=== PATIENT | male | born 1940 | race Caucasian/White ===

== ENCOUNTER 2018-05-23 05:05 | Inpatient (IN) ==
[2018-05-23] MEDS ORDERED: LACTATED RINGERS 1,000 ML IV ONE (05:38)
[2018-05-23 06:16] LABS: Basophils # (Auto) 0 K/mcL (0.0-0.3); Basophils % (Auto) 0.6 % (0.0-2.0); Eosinophils # (Auto) 0.1 K/mcL (0.0-0.7); Eosinophils % (Auto) 1.7 % (0.0-7.0); Granulocytes % (Auto) 69.7 % (38.0-78.0); Lymphocytes # (Auto) 1.6 K/mcL (1.5-4.8); Lymphocytes % (Auto) 19.8 % (15.5-49.0); Mean Cell Volume 81.9 fL (80.0-100.0); Mean Corpuscular HGB Conc 31.7 g/dL (31.0-36.0); Monocytes # (Auto) 0.7 K/mcL (0.1-0.9); Monocytes % (Auto) 8.2 % (1.0-12.0); Platelet Count 551 K/mcL (140-440); RBC 4.03 M/mcL (4.50-5.90); Red Cell Distribution Width 20.6 % (11.5-14.5)
[2018-05-23 06:22] LABS: Appearance,Urine HAZY; Bacteria,Urine FEW /hpf (0); Bilirubin,Urine NEG (NEG); Color,Urine YELLOW; Glucose,Urine (UA) NEGATIVE (NEG); Leukocyte Esterase,Urine 500 /uL (NEG); Mucus,Urine MANY /hpf (0); Protein,Urine NEG (NEG); Specific Gravity,Urine 1.017 (1.000-1.035); Urine Blood 0.03 mg/dL (<0.03); Urine Hyaline Cast 1 /lpf (0-2); Urine RBC 27 /hpf (0-1); Urine Squamous Epithelial Cell 1 /hpf (0-4); Urine WBC 29 /hpf (0-4); Urobilinogen,Urine NEG (NEG)
--- NOTE | 2018-05-23 06:31 | XRay Report ---
INDICATION: Weakness TECHNIQUE: AP chest x-ray, portable semiupright COMPARISON: None FINDINGS: There is cardiomegaly. No pulmonary edema. Right basilar pulmonary parenchymal density may be pneumonia. Correlation follow-up radiograph recommended. PA and lateral chest x-ray be helpful when clinically appropriate IMPRESSION: 1. Cardiomegaly. No evidence for congestive heart failure 2. Right basilar pulmonary parenchymal density consistent with pneumonia. Follow-up recommended Interpreted and Authenticated by: Moises Marks 05/23/18
[2018-05-23 06:39] LABS: ALT/SGPT 55 U/l (0-40); Albumin 3.6 gm/dL (3.2-5.2); Albumin/Globulin Ratio 1.2 (1.0-2.3); Alkaline Phosphatase 116 U/L (39-117); Blood Urea Nitrogen 18 mg/dl (8-23)
--- NOTE | 2018-05-23 06:58 | Emergency Department Note ---
Weakness HPI - General Chief complaint: Weakness Stated complaint: weakness Time Seen by Provider: 05/23/18 05:59 Source: family, EMS Mode of arrival: EMS Limitations: no limitations - History of Present Illness HPI Narrative: This 78-year-old male was brought to the emergency room this morning after he was found to be lethargic sleepy and not taking his medications and hard to arouse. He had a similar presentation of this around May 08 when he had a pneumonia and was admitted at [facility]. At time of discharge he needed additional physical therapy and inpatient care but because of dietary requirements for his gluten/celiac he had to be transferred here where he was accepted at [facility]. Since discharge he has had a chronic Landon. He has been taking cefuroxime. He has had poor p.o. 24 hours. Family was concerned that maybe he was exposed to gluten yesterday causing this reaction. REVIEW OF SYSTEMS: Much of this history obtained per patient's who had some troubles remembering things. No fevers or chills or sweats recently since his discharge from [facility]. No chest pains or palpitations reported. Some cough. It appears a history of aspiration but none recently. Has a little diarrhea. No dysuria. Patient self caths at home. His Landon catheter was to come out in a couple of days. No rashes. No headaches or weakness but he does use a walker. He has a lot of imbalance issues. No anxiety or depression. Has had some insomnia. - Related Data Home Medications Medication Instructions Recorded Confirmed Furosemide [Lasix] 20 mg PO ONCE 05/23/18 05/23/18 Ipratropium/Albuterol [Duoneb] 3 ml NEB Q6HRT PRN 05/23/18 05/23/18 Lisinopril [Zestril] 5 mg PO DAILY 05/23/18 05/23/18 Magnesium Hydroxide [Milk of 30 ml PO PRN PRN 05/23/18 05/23/18 Magnesia] Omeprazole 20 mg PO ONCE 05/23/18 05/23/18 Potassium Chloride [K-Tab ER] 20 meq PO ONCE 05/23/18 05/23/18 Pramipexole [Mirapex] 0.25 mg PO HS 05/23/18 05/23/18 Sucralfate [Carafate] 1 gm PO Q6 05/23/18 05/23/18 Tamsulosin [Flomax] 0.4 mg PO HS 05/23/18 05/23/18 Topiramate [Topamax] 25 mg PO ONCE 05/23/18 05/23/18 Vit A/Vit C/Vit E/Zinc/Copper 1 cap PO BID 05/23/18 05/23/18 [Preservision Areds Softgel] guaiFENesin [Mucinex] 600 mg PO BID 05/23/18 05/23/18 Allergies Allergy/AdvReac Type Severity Reaction Status Date / Time doxycycline Allergy Verified 05/23/18 05:08 nabumetone [From Relafen] Allergy Verified 05/23/18 05:08 nitrofurantoin Allergy Verified 05/23/18 05:08 Sulfa (Sulfonamide Allergy Verified 05/23/18 05:08 Antibiotics) aspirin AdvReac Verified 05/23/18 05:08 codeine AdvReac Verified 05/23/18 05:08 hydrocodone AdvReac Verified 05/23/18 05:08 tramadol AdvReac Verified 05/23/18 05:08 Past Medical History - Past Medical History Medical history: Reports: cancer (Prostate), CHF (Noted at [facility] 04/2018, chest and elevated BNP.), hyperlipidemia, hypertension, other (Status post radiation. Radiation gastroenteritis. Cervical spinal stenosis. Parkinson's. Pneumonia. Neuromuscular dysfunction bladder. Celiac. Osteoporosis. Concussion (fall related). C difficile. Macular degeneration. UGI Bleed / gastritis 01/2016. Anemia (iron infusions and 09/2008). Dysphagia (2013, 2014; feeding tube 2016 after cervical spine surgery).) Psychiatric history: Denies: anxiety, depression Surgical history ED: Reports: cataract (Bilateral 04/2016), orthopedic, other ( cervical spine rods, fusion (08/2017). R rotator cuff 11/2012. Arthroscopic L knee 11/2002.), tonsillectomy (1946.), other (adhesiolysis 11/2016. TURP 2016. Varicose vein radio frequ and 09/2012.) - Social History smoking status: Former smoker (Quit 1980) Alcohol use: Reports: Occasionally (2-3 glasses of wine per week.) Drug use: Reports: none. Denies: marijuana Physical Exam Limitations: no limitations General appearance: obtunded, other (Not interactive.) Head: atraumatic, normocephalic ENT: mucous membranes dry, other (Breathing through mouth.) Neck: Present: trachea midline. Absent: lymphadenopathy, thyromegaly Respiratory: Present: normal lung sounds bilaterally. Absent: respiratory distress, wheezes, stridor, accessory muscle use, prolonged expiratory phase Cardiovascular: Present: regular rate, normal rhythm. Absent: systolic murmur, diastolic murmur Abdominal: Present: soft. Absent: distention, tenderness, guarding, rebound, rigidity, organomegaly, mass Extremities: Absent: pedal edema, pretibial edema, calf tenderness Neurological: Present: other (Not easily arousable.) Psychiatric: Present: other (Flat face ease but not able to assess.) Skin: Present: warm, dry Course Course Narrative: 5:27 AM Severe Parkinson's on a background of increase in sleepiness and lethargy in the past 16 hours with a recent history of a pneumonia. Will do blood workup. Consider changing antibiotics. Indwelling Landon 2 weeks could be possibly associated. POLST form indicates DNR but with interventions of fluids and antibiotics. 7:15 AM Labs are actually quite unremarkable with a normal white count but some anemia. 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 This suggests aspiration which could be occult in this patient with severe Parkinson's. With this rather significant change in the past 24 hours, admission is appropriate for further evaluation of his swallowing function and to change antibiotics to get ahead of this new pneumonia. Vital Signs Temperature 99.6 F H 05/23/18 05:08 Pulse Rate 68 05/23/18 05:08 Respiratory Rate 19 05/23/18 05:08 Blood Pressure 125/75 05/23/18 05:08 Pulse Oximetry (%) 93 05/23/18 05:08 Temperature 99.7 F H 05/23/18 06:02 Pulse Rate 62 05/23/18 06:02 Respiratory Rate 21 05/23/18 06:02 Blood Pressure 105/65 05/23/18 06:01 Pulse Oximetry (%) 93 05/23/18 06:02 Weakness - MDM Narrative Medical decision making narrative: See "Course" above. In summary labs seem to be quite unremarkable but chest x-ray demonstrates right lower lobe pneumonia suggestive of aspiration in this gentleman who has severe Parkinson's. This is occult. He has a history of some dysphasia and even a feeding tube after a surgical procedure on his neck. See his past history for multiple medical conditions and problems. Patient has been on cefuroxime for treatment of a left lower lobe pneumonia. He has an indwelling Landon catheter. Because of his obtundation/lethargy/ weakness that is new with this new right lower lobe pneumonia change in antibiotic therapy (failed outpatient) and further evaluation of his swallowing is recommended. is in agreement. Dr. Haas kindly accepts this patients care, and will consider antibiotic adjustments, etc. - Lab Data Lab results reviewed: Yes I reviewed the patient's lab results. Result diagrams: 05/23/18 05:22 05/23/18 05:22 Lab Results 05/23/18 05/23/18 05/23/18 Range/Units 05:22 05:22 05:22 WBC 8.2 (4.5-11.0) K/mcL RBC 4.03 L (4.50-5.90) M/mcL Hgb 10.5 L (13.5-16.5) g/dL Hct 33.0 L (41.0-55.0) % MCV 81.9 (80.0-100.0) fL MCH 26.0 (26.0-34.0) pg MCHC 31.7 (31.0-36.0) g/dL RDW 20.6 H (11.5-14.5) % Plt Count 551 H (140-440) K/mcL MPV 9.4 (7.4-10.4) fL Gran % 69.7 (38.0-78.0) % Lymph % (Auto) 19.8 (15.5-49.0) % [place] % (Auto) 8.2 (1.0-12.0) % Eos % (Auto) 1.7 (0.0-7.0) % Baso % (Auto) 0.6 (0.0-2.0) % Gran # 5.7 (1.8-8.0) K/mcL Lymph # (Auto) 1.6 (1.5-4.8) K/mcL [place] # (Auto) 0.7 (0.1-0.9) K/mcL Eos # (Auto) 0.1 (0.0-0.7) K/mcL Baso # (Auto) 0 (0.0-0.3) K/mcL VBG Lactic Acid (0.5-2.2) mmol/L Sodium 139 (133-145) mmol/L Potassium 3.7 (3.3-5.1) mmol/L Chloride 105 (96-108) mmol/L Carbon Dioxide 23 (22-30) mmol/L Anion Gap 11.0 (8-16) BUN 18 (8-23) mg/dl Creatinine 0.8 (0.7-1.2) mg/dl GFR Calculation 87 Glucose 76 (70-105) mg/dL Calcium 9.4 (8.6-10.4) mg/dl Total Bilirubin 0.5 (0.0-1.0) mg/dL AST 24 (0-37) U/l ALT 55 H (0-40) U/l Alkaline Phosphatase 116 (39-117) U/L Total Protein 6.6 (5.9-8.4) gm/dL Albumin 3.6 (3.2-5.2) gm/dL Globulin 3.0 (2.2-3.7) gm/dL Albumin/Globulin Ratio 1.2 (1.0-2.3) Procalcitonin (<0.10) ng/mL Urine Color Yellow Urine Appearance Hazy Urine pH 5.0 (5.0-9.0) Ur Specific [place] 1.017 (1.000-1.035) Urine Protein Neg (NEG) mg/dL Urine Glucose (UA) Negative (NEG) mg/dL Urine Ketones 5/tr A (NEG) mg/dL Urine Occult Blood 0.03 A (<0.03) mg/dL Urine Nitrate Neg (NEG) Urine Bilirubin Neg (NEG) mg/dL Urine Urobilinogen Neg (NEG) mg/dL Ur Leukocyte Esterase 500 A (NEG) /uL Urine RBC 27 H (0-1) /hpf Urine WBC 29 H (0-4) /hpf Ur Squamous Epith Cells 1 (0-4) /hpf Urine Bacteria Few A (0) /hpf Hyaline Casts 1 (0-2) /lpf Urine Mucus Many A (0) /hpf Ur Culture Indicated? Yes 07/07/18 07/07/18 Range/Units 05:22 05:22 WBC (4.5-11.0) K/mcL RBC (4.50-5.90) M/mcL Hgb (13.5-16.5) g/dL Hct (41.0-55.0) % MCV (80.0-100.0) fL MCH (26.0-34.0) pg MCHC (31.0-36.0) g/dL RDW (11.5-14.5) % Plt Count (140-440) K/mcL MPV (7.4-10.4) fL Gran % (38.0-78.0) % Lymph % (Auto) (15.5-49.0) % [place] % (Auto) (1.0-12.0) % Eos % (Auto) (0.0-7.0) % Baso % (Auto) (0.0-2.0) % Gran # (1.8-8.0) K/mcL Lymph # (Auto) (1.5-4.8) K/mcL [place] # (Auto) (0.1-0.9) K/mcL Eos # (Auto) (0.0-0.7) K/mcL Baso # (Auto) (0.0-0.3) K/mcL VBG Lactic Acid 1.0 (0.5-2.2) mmol/L Sodium (133-145) mmol/L Potassium (3.3-5.1) mmol/L Chloride (96-108) mmol/L Carbon Dioxide (22-30) mmol/L Anion Gap (8-16) BUN (8-23) mg/dl Creatinine (0.7-1.2) mg/dl GFR Calculation Glucose (70-105) mg/dL Calcium (8.6-10.4) mg/dl Total Bilirubin (0.0-1.0) mg/dL AST (0-37) U/l ALT (0-40) U/l Alkaline Phosphatase (39-117) U/L Total Protein (5.9-8.4) gm/dL Albumin (3.2-5.2) gm/dL Globulin (2.2-3.7) gm/dL Albumin/Globulin Ratio (1.0-2.3) Procalcitonin < 0.05 (<0.10) ng/mL Urine Color Urine Appearance Urine pH (5.0-9.0) Ur Specific [place] (1.000-1.035) Urine Protein (NEG) mg/dL Urine Glucose (UA) (NEG) mg/dL Urine Ketones (NEG) mg/dL Urine Occult Blood (<0.03) mg/dL Urine Nitrate (NEG) Urine Bilirubin (NEG) mg/dL Urine Urobilinogen (NEG) mg/dL Ur Leukocyte Esterase (NEG) /uL Urine RBC (0-1) /hpf Urine WBC (0-4) /hpf Ur Squamous Epith Cells (0-4) /hpf Urine Bacteria (0) /hpf Hyaline Casts (0-2) /lpf Urine Mucus (0) /hpf Ur Culture Indicated? - Radiology Data Radiology results reviewed: Yes I reviewed the patient's radiology results. - EKG Data EKG results narrative: No acute coronary syndrome findings. This ECG will be read by a ror engineer. Disposition Pt seen by [employer] [facility] only: No Clinical Impression: Lethargy, Parkinson disease, symptomatic Pneumonia Qualifiers: Pneumonia type: aspiration pneumonia Aspiration pneumonia type: unspecified Laterality: right Lung location: lower lobe of lung Qualified Code(s): J69.0 - Pneumonitis due to inhalation of food and vomit Disposition: Xfer As Inpt ([facility]) Condition: Fair Referrals: Ronnie Bernal MD [Primary Care Provider] -
[2018-05-23] MEDS ORDERED: 0.9 % SODIUM CHLORIDE 500 ML IV ONE (07:11)
[2018-05-23] MEDS ORDERED: PIPERACILLIN SODIUM/TAZOBACTAM 3.375 GM in DEXTROSE 5% IN WATER 50 ML IV ONE (08:11)
[2018-05-23] MEDS ORDERED: IPRATROPIUM/ALBUTEROL 3 ML AMPUL.NEB NEB PRN (09:56)
[2018-05-23] MEDS ORDERED: ACETAMINOPHEN 325 MG TABLET PO PRN (09:56)
[2018-05-23] MEDS ORDERED: ONDANSETRON 4 MG/2 ML VIAL IV PRN (09:56)
[2018-05-23 10:58] LABS: proBNP 515.8 pg/ml (0-450)
[2018-05-23] MEDS: IPRATROPIUM/ALBUTEROL 3 ML AMPUL.NEB NEB SCH ×4 (11:29→23:26)
[2018-05-23] MEDS: BUDESONIDE 0.5 MG/2 ML AMPUL.NEB NEB SCH ×2 (11:30→19:33)
--- NOTE | 2018-05-23 11:54 | Internal Med History&Physical ---
Medical - H&P: HPI Patient information: Note initiated : 05/23/18 at 11:52 am Service Date, if different from initiated Date: [] Patient: Hamlet Schofield 78 y/o M admitted on 05/23/18 for weakness. Chief Complaint: [Lethargic, weak, decrease level of responsiveness] History of present illness: Mr. Schofield is a 78 year old M ex-smoker with history of prostate cancer, Parkinson's disease, Celiac Sprue, and has been recently 05/19/18 admitted to [facility] ([facility]) from [facility] after treatment for bilateral pneumonia and Escherichia coli septicemia (05/08/18). He was found to be lethargic, sleepy, hard to arouse, not able to participate in rehabilitation activities and not taking his medications yesterday, 05/22/18. Chest x-ray evaluation of his altered mental status in the ER this morning suggests a new right lower lobe pneumonia, although he is still on oral cefuroxime for his recent bilateral pneumonia; he may have developed aspiration. His lab work is rather unremarkable with normal pro-calcitonin & lactate, no WBC elevation, however, he appears slightly tachypneic, is nonverbal , obtunded, with decreased level of consciousness (his reports similar presentation on his recent Escherichia coli septicemia). His indwelling Landon urine is also positive with leukoesterase, WBC, bacteria. We'll panculture him and switch him over to IV Zosyn. His reports that he has been fluid overloaded on recent hospitalization, I'll ask to obtain a copy of his echocardiogram report if one was done at [facility]. All systems: reviewed and no additional remarkable complaints except as stated - Constitutional Constitutional: Present: fatigue, lethargy, weakness. Absent: chills, fever(s) - Cardiovascular Additional comments: Recent fluid overload with pleural effusion, for treatment of Escherichia coli bacteremic sepsis and bilateral pneumonia at [facility] - Respiratory Respiratory: Present: cough. Absent: hemoptysis, dyspnea on exertion, wheezing - Gastrointestinal Additional comments: Celiac sprue, gluten intolerance - Genitourinary Additional comments: History of prostate cancer treatment, in and out self-catheterization changed to indwelling catheter on recent hospitalization, is due to be removed 05/25/18 - Neurological Neurological: Present: lack of coordination Additional comments: Parkinson's symptoms Medical - H&P: [facility] Medical history: cancer (Prostate), CHF (Noted at [facility] 04/2018, chest and elevated BNP.), hyperlipidemia, hypertension, other (Status post radiation. Radiation gastroenteritis). Cervical spinal stenosis. Parkinson's. Pneumonia. Neuromuscular dysfunction bladder. Celiac Sprue. Osteoporosis. Concussion ( fall related). C difficile. Macular degeneration. UGI Bleed /gastritis 2015. Anemia (iron infusions and 09/2008). Dysphagia (2013, 2014; feeding tube 2016 after cervical spine surgery). Surgical history: cataract (Bilateral 04/2016), orthopedic, other (cervical spine rods, fusion (2016). R rotator cuff 11/2012. Arthroscopic L knee 11/2002.), tonsillectomy ( 1946.), other (adhesiolysis 11/2016. TURP 05/2017. Varicose vein radio frequ and 09/2012.) Pertinent family history: Mother had breast cancer, father of lung CA, a sister has type 1 diabetes Social history: Up to 2 pack per day for 24 years Smoking status: Former smoker Alcohol use: occasionally Medical - H&P: Meds Home Medications Medication Instructions Recorded Confirmed Type Furosemide [Lasix] 20 mg PO ONCE 05/23/18 05/23/18 History Ipratropium/Albuterol [Duoneb] 3 ml NEB Q6HRT PRN 05/23/18 05/23/18 History Lisinopril [Zestril] 5 mg PO DAILY 05/23/18 05/23/18 History Magnesium Hydroxide [Milk of 30 ml PO PRN PRN 05/23/18 05/23/18 History Magnesia] Omeprazole 20 mg PO ONCE 05/23/18 05/23/18 History Potassium Chloride [K-Tab ER] 20 meq PO ONCE 05/23/18 05/23/18 History Pramipexole [Mirapex] 0.25 mg PO HS 05/23/18 05/23/18 History Sucralfate [Carafate] 1 gm PO Q6 05/23/18 05/23/18 History Tamsulosin [Flomax] 0.4 mg PO HS 05/23/18 05/23/18 History Topiramate [Topamax] 25 mg PO ONCE 05/23/18 05/23/18 History Vit A/Vit C/Vit E/Zinc/Copper 1 cap PO BID 05/23/18 05/23/18 History [Preservision Areds Softgel] guaiFENesin [Mucinex] 600 mg PO BID 05/23/18 05/23/18 History Allergies Allergy/AdvReac Type Severity Reaction Status Date / Time doxycycline Allergy Verified 05/23/18 05:08 nabumetone [From Relafen] Allergy Verified 05/23/18 05:08 nitrofurantoin Allergy Verified 05/23/18 05:08 Sulfa (Sulfonamide Allergy Verified 05/23/18 05:08 Antibiotics) aspirin AdvReac Verified 05/23/18 05:08 codeine AdvReac Verified 05/23/18 05:08 hydrocodone AdvReac Verified 05/23/18 05:08 tramadol AdvReac Verified 05/23/18 05:08 Medical - H&P: Exam - Constitutional Vitals: Temp Pulse Resp BP Pulse Ox 98.6 F 65 20 135/75 95 05/23/18 09:56 05/23/18 11:44 05/23/18 11:44 05/23/18 09:56 05/23/18 11:46 Exam: Lethargic, nonverbal, decreased level of consciousness - Head Head exam: Present: atraumatic, normocephalic - Eye Eye exam: Present: EOMI Pupils: Present: PERRL - ENT ENT exam: Present: mucous membranes dry - Neck Neck exam: Present: normal inspection - Respiratory Additional comments: Few right base crackles, mild respiratory distress appears with increased respiration on room air - Expanded Respiratory Exam Location: rhonchi: Right, Lower - Cardiovascular Cardiovascular exam: Present: RRR, +S1, +S2 - GI/Abdominal GI/Abdominal exam: Present: normal bowel sounds, soft - Extremities Exam Extremities exam: Present: full ROM, normal capillary refill Additional comments: Cold feet - Neurological Exam Neurological exam: Present: altered, reflexes normal Additional comments: Lethargic, weak, and have Decreased level of responsiveness (according to , he has normal verbal response). - Skin Skin exam: Present: dry, intact, warm Medical - H&P: Reslt - Labs CBC & Chem 7: 05/23/18 05:22 05/23/18 05:22 Labs: Short CBC 05/23/18 Range/Units 05:22 WBC 8.2 (4.5-11.0) K/mcL Hgb 10.5 L (13.5-16.5) g/dL Hct 33.0 L (41.0-55.0) % Plt Count 551 H (140-440) K/mcL BMP 05/23/18 05:22 Sodium 139 Potassium 3.7 Chloride 105 Carbon Dioxide 23 BUN 18 Creatinine 0.8 Glucose 76 Calcium 9.4 Liver Function 05/23/18 Range/Units 05:22 Total Bilirubin 0.5 (0.0-1.0) mg/dL AST 24 (0-37) U/l ALT 55 H (0-40) U/l Alkaline Phosphatase 116 (39-117) U/L Albumin 3.6 (3.2-5.2) gm/dL Urine 05/23/18 Range/Units 05:22 Urine Color Yellow Urine Appearance Hazy Urine pH 5.0 (5.0-9.0) Ur Specific [place] 1.017 (1.000-1.035) Urine Protein Neg (NEG) mg/dL Urine Glucose (UA) Negative (NEG) mg/dL - EKG Data -: EKG Reviewed by Myself EKG shows normal: sinus rhythm Rate: normal - EKG Data Prior EKG available for review: no Interpretation: normal EKG - Imaging and Cardiology Chest x-ray Additional comments: 1. Cardiomegaly. No evidence for congestive heart failure 2. Right basilar pulmonary parenchymal density consistent with pneumonia. Follow-up recommended Interpreted and Authenticated by: Moises Marks 05/23/18 Medical - H&P: A/P (1) Lethargy Problem details: Altered mental status and decreased level of consciousness Current visit: Yes Status: Acute Contributing factors including pneumonia, UTI, acute CHF exacerbation, possibly early sepsis (recent septicemia/sepsis). Blood and urine cultures and sensitivities, changed to Zosyn IV antibiotics, resume Lasix, Hep-Lock IV fluids, consider beta ana addition, hold lisinopril for now Pulmonary rehabilitation (2) Pneumonia Current visit: Yes Status: Acute Pulmonary rehabilitation, IV Zosyn, resume low-dose diuretic, sputum culture if possible and available. Follows serial chest x-ray (3) UTI (urinary tract infection) due to urinary indwelling catheter Problem details: indwelling Landon urine has positive leukoesterase, WBC, bacteria Current visit: Yes Status: Acute Switch to IV Zosyn, urine culture and sensitivities, may need to remove indwelling Landon. (4) CHF (congestive heart failure) Current visit: Yes Status: Acute Pending BNP peptide results, obtain recent copy of 2-D echo report, check serial troponin if BNP elevated. Resume Lasix and lisinopril, add beta ana, ?Repeat echocardiogram? (5) Celiac disease/sprue Current visit: Yes Status: Chronic Current symptoms Do not appear to be from gluten exposure (6) Parkinson disease, symptomatic Current visit: Yes Status: Chronic Resume Mirapex and Topamax, consider dose reduction if sepsis (7) Hyperlipidemia Current visit: Yes Status: Chronic Resume Zocor, if needed recheck and titrated with fasting lipid profile
[2018-05-23] MEDS: SUCRALFATE 1 GM TABLET PO SCH ×2 (12:44→17:16)
[2018-05-23] MEDS: ENOXAPARIN 40 MG/0.4 ML SYRINGE SQ SCH (12:46)
[2018-05-23] MEDS: PIPERACILLIN SODIUM/TAZOBACTAM 3.375 GM in DEXTROSE 5% IN WATER 50 ML IV SCH ×3 (12:46→23:58)
[2018-05-23] MEDS: 0.9 % SODIUM CHLORIDE 10 ML SYRINGE IV SCH (12:46)
[2018-05-23] MEDS: METOPROLOL TARTRATE 25 MG TABLET PO SCH ×2 (17:16→21:45)
[2018-05-23] MEDS: FUROSEMIDE 20 MG/2 ML VIAL IV SCH (17:18)
[2018-05-23] MEDS: FAMOTIDINE/PF 20 MG/2 ML VIAL IV SCH ×2 (17:18→21:46)
[2018-05-23] MEDS: guaiFENesin 600 MG TAB.SR.12H PO SCH (21:45)
[2018-05-23] MEDS: PRAMIPEXOLE 0.25 MG TABLET PO SCH (21:45)
[2018-05-23] MEDS: TAMSULOSIN 0.4 MG CAPSULE PO SCH (21:45)
[2018-05-23] MEDS: VIT C PO SCH (21:46)
[2018-05-23] MEDS: ZINC PO SCH (21:46)
[2018-05-23] MEDS: COPPER PO SCH (21:46)
[2018-05-23] MEDS: TOPIRAMATE 25 MG TABLET PO SCH (21:46)
[2018-05-23] MEDS: VIT E PO SCH (21:46)
[2018-05-23] MEDS: VIT A PO SCH (21:46)
[2018-05-24] MEDS: 0.9 % SODIUM CHLORIDE 10 ML SYRINGE IV SCH ×5 (00:28→20:27)
[2018-05-24] MEDS: SUCRALFATE 1 GM TABLET PO SCH ×4 (00:28→17:56)
[2018-05-24] MEDS: IPRATROPIUM/ALBUTEROL 3 ML AMPUL.NEB NEB SCH ×6 (05:06→23:00)
[2018-05-24] MEDS: PIPERACILLIN SODIUM/TAZOBACTAM 3.375 GM in DEXTROSE 5% IN WATER 50 ML IV SCH ×3 (05:52→17:56)
[2018-05-24] MEDS ORDERED: OMEPRAZOLE 20 MG CAPSULE PO SCH (07:30)
[2018-05-24] MEDS: BUDESONIDE 0.5 MG/2 ML AMPUL.NEB NEB SCH ×2 (07:35→20:20)
[2018-05-24] MEDS: FAMOTIDINE/PF 20 MG/2 ML VIAL IV SCH ×2 (08:11→08:33)
[2018-05-24] MEDS: ENOXAPARIN 40 MG/0.4 ML SYRINGE SQ SCH (08:11)
[2018-05-24] MEDS: FUROSEMIDE 20 MG/2 ML VIAL IV SCH (08:33)
[2018-05-24] MEDS: METOPROLOL TARTRATE 25 MG TABLET PO SCH ×2 (09:11→20:16)
[2018-05-24] MEDS: guaiFENesin 600 MG TAB.SR.12H PO SCH ×2 (09:37→20:16)
[2018-05-24] MEDS: VIT A PO SCH ×2 (09:38→20:26)
[2018-05-24] MEDS: VIT E PO SCH ×2 (09:38→20:26)
[2018-05-24] MEDS: COPPER PO SCH ×2 (09:38→20:26)
[2018-05-24] MEDS: ZINC PO SCH ×2 (09:38→20:26)
[2018-05-24] MEDS: VIT C PO SCH ×2 (09:38→20:26)
--- NOTE | 2018-05-24 12:37 | Internal Med Progress Note ---
Medical - PN: Subj Patient information: Note initiated : 05/24/18 at 12:37 pm Service Date, if different from initiated Date: [] Patient: Hamlet Schofield 78 y/o M admitted on 05/23/18 for weakness. Chief Complaint: [] Interval history: 78 year old M ex-smoker, with hx of prostate cancer, Parkinson's disease, Celiac Sprue, had been recently treated for bilateral pneumonia and Escherichia coli septicemia (05/08/18) at [facility] [place], was found to be lethargic-sleepy -unarouse at [facility] ([facility], where he is to start rehabilitation). His admission chest x-ray yesterday (05/23/18) suggests a new right lower lobe pneumonia (possibly aspiration), although he is still on oral cefuroxime. He also has positive UTI from indwelling Landon with leukoesterase, WBC, bacteria. He is admitted and being treated with IV Zosyn. His reports that he has been fluid overloaded on recent [facility] hospitalization, and his admission lab work was rather unremarkable with normal pro-calcitonin & lactate, no WBC elevation, but elevated BNP 515. His echo report 05/12/[address] [facility] show reduced LV systolic function (EF estimated 30-35 %), severe hypokinesis/akinesis of the septum and anterior septum and apex, there is moderate anterior wall hypokinesis, moderate tricuspid regurgitation, moderate pulmonary hypertension (50-70 mmHg, estimated pulmonary artery pressure 52 mmHg). His prior echo 05/13/16 shows preserved EF of 55-60%. He is started on small dose of Lasix for diuresis. 05/24/18 Sitting on chair, alert and following commands, participated with physical therapy this morning, no problem with swallowing or eating. We will start him on gluten-free diet with cardiac contents & fluid restriction , switch IV meds to oral, resume his Parkinson & other oral home medications but will keep him on 1 more day of IV Lasix, and repeat 2v chest x-ray in the morning. Monitor if he is tolerating metoprolol added, resume lisinopril if BP tolerates. - Constitutional Vitals: Vital Signs Temp Pulse Resp BP Pulse Ox 98.6 F 72 20 117/82 95 05/24/18 12:00 05/24/18 11:22 05/24/18 12:00 05/24/18 12:00 05/24/18 12:00 Period Temp Pulse Resp BP Sys/Carrion Pulse Ox Last 24 Hr 98 F-99.9 F 63-92 18-22 98-137/60-86 90-98 Intake and Output 05/23/18 05/24/18 05/24/18 21:59 05:59 13:59 Intake Total 50 / 50 50 / 50 Output Total 800 / 800 1700 / 1700 Balance -750 / -750 -1650 / -1650 Weight 165 lb Intake & Output: Intake & Output 05/23/18 05/24/18 05/24/18 21:59 05:59 13:59 Intake Total 50 / 50 50 / 50 Output Total 800 / 800 1700 / 1700 Balance -750 / -750 -1650 / -1650 Weight 165 lb Intake: IV 50 / 50 50 / 50 Zosyn 3.375 gm In Dextrose 5% 50 / 50 50 / 50 in Water 50 ml @ 100 mls/hr IV Q6H [facility] Rx#:[id number] Output: Urine Catheter Amount 800 / 800 1700 / 1700 General appearance: cooperative, no acute distress - Head Head exam: Present: atraumatic, normocephalic - Eye Eye exam: Present: EOMI, PERRL Pupils: Present: normal accommodation - ENT ENT exam: Present: mucous membranes moist, normal oropharynx - Neck Neck exam: Present: full ROM. Absent: lymphadenopathy, meningismus - Respiratory Respiratory exam: Present: rales Additional comments: basilar rales at posterior base - Cardiovascular Cardiovascular exam: Present: RRR, +S1, +S2. Absent: gallop, rubs, systolic murmur - GI/Abdominal GI/Abdominal exam: Present: normal bowel sounds, soft. Absent: guarding, rebound, tenderness - Extremities Exam Extremities exam: Present: normal capillary refill. Absent: calf tenderness, pedal edema, tenderness - Neurological Exam Neurological exam: Present: alert, CN II-XII intact, normal gait, reflexes normal - Skin Skin exam: Present: intact, warm. Absent: erythema, petechiae, rash Medical - PN: Obj Da - Labs CBC & Chem 7: 05/24/18 11:43 05/24/18 11:43 Labs: Abnormal Lab Results 0705/23/18 05/23/18 05:22 05:22 05:22 RBC Hgb Hct RDW Plt Count ESR 39 H ALT 55 H NT-Pro-B Natriuret Pep 515.8 H Urine Ketones Urine Occult Blood Ur Leukocyte Esterase Urine RBC Urine WBC Urine Bacteria Urine Mucus 05/23/18 05/23/18 05:22 05:22 RBC 4.03 L Hgb 10.5 L Hct 33.0 L RDW 20.6 H Plt Count 551 H ESR ALT NT-Pro-B Natriuret Pep Urine Ketones 5/tr A Urine Occult Blood 0.03 A Ur Leukocyte Esterase 500 A Urine RBC 27 H Urine WBC 29 H Urine Bacteria Few A Urine Mucus Many A Meds: Medications Acetaminophen (Tylenol) 650 mg PO Q6HP PRN PRN Reason: PAIN/FEVER > 101 Albuterol/Ipratropium (Duoneb) 3 ml NEB Q4HRT [facility] Last Admin: 05/24/18 11:15 Dose: 3 ml Albuterol/Ipratropium (Duoneb) 3 ml NEB Q6HRT PRN PRN Reason: Shortness Of Breath Budesonide (Pulmicort) 0.5 mg NEB Q12 [facility] Last Admin: 05/24/18 07:35 Dose: 0.5 mg Enoxaparin Sodium (Lovenox) 40 mg SQ DAILY [facility] Last Admin: 05/24/18 08:11 Dose: 40 mg Famotidine (Pepcid) 20 mg IV Q12 [facility] Last Admin: 05/24/18 08:33 Dose: 20 mg Furosemide (Lasix) 20 mg IV DAILY [facility] Last Admin: 05/24/18 08:33 Dose: 20 mg Guaifenesin (Mucinex) 600 mg PO BID [facility] Last Admin: 05/24/18 09:37 Dose: Not Given Piperacillin Sod/Tazobactam (Sod 3.375 gm/ Dextrose) 50 mls @ 100 mls/hr IV Q6H [facility] Last Admin: 05/24/18 05:52 Dose: 100 mls/hr Metoprolol Tartrate (Lopressor) 12.5 mg PO BID [facility] Last Admin: 05/24/18 09:11 Dose: Not Given Omeprazole (Prilosec) 20 mg PO ACB [facility] Last Admin: 05/24/18 09:37 Dose: Not Given Ondansetron HCl (Zofran) 4 mg IV Q4HP PRN PRN Reason: Nausea And Vomiting Vit A/Vit C/Vit E/Zinc/Copper [ Preservision Areds] Cap 1 dose PO BID [facility] Last Admin: 05/24/18 09:38 Dose: Not Given Pramipexole Dihydrochloride (Mirapex) 0.25 mg PO [facility] Last Admin: 05/23/18 21:45 Dose: Not Given Sodium Chloride (Saline Flush) 10 ml IV Q8 [facility] Last Admin: 05/24/18 08:39 Dose: 10 ml Sucralfate (Carafate) 1 gm PO Q6 [facility] Last Admin: 05/24/18 05:52 Dose: Not Given Tamsulosin HCl (Flomax) 0.4 mg PO [facility] Last Admin: 05/23/18 21:45 Dose: Not Given Topiramate (Topamax) 25 mg PO [facility] Last Admin: 05/23/18 21:46 Dose: Not Given Medical - PN: A/P - Time Spent With Patient Total time spent is greater than 50% in coordination of care (as documented) at patient's floor/unit and/or counseling patient: 25 - 35 minutes (1) Lethargy Problem details: Altered mental status and decreased level of consciousness Status: Acute Assessment and plan: Contributing factors including pneumonia, UTI, acute CHF exacerbation, possibly early sepsis (recent septicemia/sepsis). pending results on Blood and urine cultures and sensitivities, continue Zosyn IV antibiotics, IV to oral Lasix, Hep-Lock IV fluids, fluid restriction, oral metoprolol beta ana addition, ? Resume lisinopril if BP tolerates, Continue Pulmonary rehabilitation, Current Visit: Yes (2) CHF (congestive heart failure) Status: Acute Assessment and plan: As above, fluid restriction, diuresis, metoprolol, ? Resume lisinopril? Recheck BNP Current Visit: Yes (3) Pneumonia Status: Acute Assessment and plan: Pending blood cultures results, continue Zosyn, & pulmonary rehabilitation. Current Visit: Yes (4) UTI (urinary tract infection) due to urinary indwelling catheter Problem details: indwelling Landon urine has positive leukoesterase, WBC, bacteria Status: Acute Assessment and plan: Pending urine cultures results, continue Zosyn, & recheck UA?. Current Visit: Yes (5) Celiac disease/sprue Status: Chronic Assessment and plan: Resume gluten-free diet with cardiac contents: Low-fat and low-salt low- cholesterol diet. Current Visit: Yes (6) Parkinson disease, symptomatic Status: Chronic Assessment and plan: Resume home meds: Mirapex and Topamax Current Visit: Yes (7) Hyperlipidemia Problem details: Resume on Zocor, encourage low-fat and low-salt low- cholesterol diet Status: Chronic Current Visit: Yes Medical - PN: Qual - VTE Deep Vein Thrombosis/Pulmonary Embolism Present on Admission: No
[2018-05-24 12:57] LABS: Basophils # (Auto) 0 K/mcL (0.0-0.3); Basophils % (Auto) 0.6 % (0.0-2.0); Eosinophils # (Auto) 0 K/mcL (0.0-0.7); Eosinophils % (Auto) 0.6 % (0.0-7.0); Granulocytes % (Auto) 73.1 % (38.0-78.0); Lymphocytes # (Auto) 1.4 K/mcL (1.5-4.8); Lymphocytes % (Auto) 18.3 % (15.5-49.0); Mean Corpuscular HGB Conc 32.1 g/dL (31.0-36.0); Monocytes # (Auto) 0.5 K/mcL (0.1-0.9); Monocytes % (Auto) 7.4 % (1.0-12.0); Platelet Count 558 K/mcL (140-440); RBC 4.24 M/mcL (4.50-5.90); Red Cell Distribution Width 20.5 % (11.5-14.5)
[2018-05-24 13:15] LABS: Blood Urea Nitrogen 17 mg/dl (8-23)
[2018-05-24] MEDS: CARBIDOPA/LEVODOPA 25/100 TABLET PO SCH (20:15)
[2018-05-24] MEDS: PRAMIPEXOLE 0.25 MG TABLET PO SCH (20:15)
[2018-05-24] MEDS: SIMVASTATIN 20 MG TABLET PO SCH (20:15)
[2018-05-24] MEDS: OMEPRAZOLE 20 MG CAPSULE PO SCH (20:16)
[2018-05-24] MEDS: TAMSULOSIN 0.4 MG CAPSULE PO SCH (20:25)
[2018-05-24] MEDS: TOPIRAMATE 25 MG TABLET PO SCH (22:54)
[2018-05-25] MEDS: PIPERACILLIN SODIUM/TAZOBACTAM 3.375 GM in DEXTROSE 5% IN WATER 50 ML IV SCH ×3 (00:15→12:36)
[2018-05-25] MEDS: SUCRALFATE 1 GM TABLET PO SCH ×4 (00:15→20:20)
[2018-05-25] MEDS: CARBIDOPA/LEVODOPA 25/100 TABLET PO SCH ×6 (00:16→21:20)
[2018-05-25] MEDS: IPRATROPIUM/ALBUTEROL 3 ML AMPUL.NEB NEB SCH ×5 (03:41→19:45)
[2018-05-25 05:25] LABS: Basophils # (Auto) 0.1 K/mcL (0.0-0.3); Basophils % (Auto) 0.7 % (0.0-2.0); Eosinophils # (Auto) 0.2 K/mcL (0.0-0.7); Eosinophils % (Auto) 2.2 % (0.0-7.0); Granulocytes % (Auto) 62.8 % (38.0-78.0); Lymphocytes # (Auto) 1.9 K/mcL (1.5-4.8); Lymphocytes % (Auto) 25.5 % (15.5-49.0); Mean Cell Volume 82.5 fL (80.0-100.0); Mean Corpuscular HGB Conc 31.6 g/dL (31.0-36.0); Mean Corpuscular Hemoglobin 26.1 pg (26.0-34.0); Monocytes # (Auto) 0.6 K/mcL (0.1-0.9); Monocytes % (Auto) 8.8 % (1.0-12.0); Platelet Count 512 K/mcL (140-440); RBC 3.81 M/mcL (4.50-5.90)
[2018-05-25 05:35] LABS: Blood Urea Nitrogen 22 mg/dl (8-23); proBNP 847.5 pg/ml (0-450)
[2018-05-25] MEDS: 0.9 % SODIUM CHLORIDE 10 ML SYRINGE IV SCH ×3 (05:58→21:20)
[2018-05-25] MEDS: BUDESONIDE 0.5 MG/2 ML AMPUL.NEB NEB SCH ×2 (07:42→19:45)
--- NOTE | 2018-05-25 07:49 | Internal Med Progress Note ---
Medical - PN: Subj Patient information: Note initiated : 05/25/18 at 7:47 am Service Date, if different from initiated Date: [] Patient: Hamlet Schofield 78 y/o M admitted on 05/23/18 for weakness. Chief Complaint: [] Interval history: 78 year old M ex-smoker, with hx of prostate cancer, Parkinson's disease, Celiac Sprue, had been recently treated for bilateral pneumonia and Escherichia coli septicemia (05/08/18) at [facility], was found to be lethargic-sleepy -unarouse at [facility] ([facility], where he is to start rehabilitation). His admission chest x-ray yesterday (05/23/18) suggests a new right lower lobe pneumonia (possibly aspiration), although he is still on oral cefuroxime. He also has positive UTI from indwelling Landon with leukoesterase, WBC, bacteria. He is admitted and being treated with IV Zosyn. His reports that he has been fluid overloaded on recent [facility] hospitalization, and his admission lab work was rather unremarkable with normal pro-calcitonin & lactate, no WBC elevation, but elevated BNP 515. His echo report 05/12/18 at [facility] show reduced LV systolic function (EF estimated 30-35 %), severe hypokinesis/akinesis of the septum and anterior septum and apex, there is moderate anterior wall hypokinesis, moderate tricuspid regurgitation, moderate pulmonary hypertension (50-70 mmHg, estimated pulmonary artery pressure 52 mmHg). His prior echo 05/13/16 shows preserved EF of 55-60%. He is started on small dose of Lasix for diuresis. 05/24/18 Sitting on chair, alert and following commands, participated with physical therapy this morning, no problem with swallowing or eating. We will start him on gluten-free diet with cardiac contents & fluid restriction , switch IV meds to oral, resume his Parkinson & other oral home medications but will keep him on 1 more day of IV Lasix, and repeat 2v chest x-ray in the morning. Monitor if he is tolerating metoprolol added, resume lisinopril if BP tolerates. 05/25/18 doing well, answering questions, although slow soft voice, low grade temp this am, await recheck 2V CXR for follow up on RLL infiltrate. His CHF will benefit from beta ana or calcium channel ana, will change lisinopril to metoprolol XL 12.5mg daily. [facility]: BMP BNP(?CMP) every 3 days for 2 weeks , following to be discontinued at 05/26-05/27 (self catheter 5 times a day), OT and speech therapy - Constitutional Vitals: Vital Signs Temp Pulse Resp BP Pulse Ox 99.2 F H 80 18 102/64 91 05/25/18 03:57 05/25/18 03:57 05/25/18 03:57 05/25/18 03:57 05/25/18 03:57 Period Temp Pulse Resp BP Sys/Carrion Pulse Ox Last 24 Hr 98 F-99.2 F 72-80 16-28 102-138/64-94 91-100 Intake and Output 05/24/18 05/25/18 05/25/18 21:59 05:59 13:59 Intake Total 680 / 680 50 / 50 Output Total 925 / 925 750 / 750 Balance -245 / -245 -700 / -700 Weight 168 lb 3.2 oz Intake & Output: Intake & Output 05/24/18 05/25/18 05/25/18 21:59 05:59 13:59 Intake Total 680 / 680 50 / 50 Output Total 925 / 925 750 / 750 Balance -245 / -245 -700 / -700 Weight 168 lb 3.2 oz Intake: IV 50 / 50 50 / 50 Zosyn 3.375 gm In Dextrose 5% 50 / 50 50 / 50 in Water 50 ml @ 100 mls/hr IV Q6H [facility] Rx#:[id number] Oral 630 / 630 Output: Urine Catheter Amount 925 / 925 750 / 750 Other: Meal Dinner Percent of Meal Consumed 100% Feeding Ability Independent General appearance: cooperative, no acute distress - Head Head exam: Present: atraumatic, normocephalic - Eye Eye exam: Present: EOMI Pupils: Present: normal accommodation, PERRL - ENT ENT exam: Present: mucous membranes moist - Neck Neck exam: Present: full ROM, normal inspection. Absent: meningismus, thyromegaly - Respiratory Respiratory exam: Present: normal respiratory exam, CTAB - Cardiovascular Cardiovascular exam: Present: RRR, +S1, +S2. Absent: gallop, rubs - GI/Abdominal GI/Abdominal exam: Present: normal bowel sounds, soft. Absent: guarding, rebound, tenderness - Extremities Exam Extremities exam: Present: full ROM. Absent: calf tenderness, pedal edema, tenderness - Neurological Exam Neurological exam: Present: alert, CN II-XII intact Additional comments: Parkinson's facies - Skin Skin exam: Present: intact, warm. Absent: erythema, petechiae, rash Medical - PN: Obj Da - Labs CBC & Chem 7: 05/25/18 03:53 05/25/18 03:53 Labs: Abnormal Lab Results 05/25/18 05/25/18 05/25/18 06:04 03:53 03:53 RBC 3.81 L Hgb 9.9 L Hct 31.4 L RDW 20.0 H Plt Count 512 H Lymph # (Auto) ESR 40 H ALT NT-Pro-B Natriuret Pep 847.5 H Urine Ketones Urine Occult Blood Ur Leukocyte Esterase Urine RBC Urine WBC Urine Bacteria Urine Mucus 05/24/18 05/23/18 05/23/18 11:43 05:22 05:22 RBC 4.24 L Hgb 11.0 L Hct 34.3 L RDW 20.5 H Plt Count 558 H Lymph # (Auto) 1.4 L ESR 39 H ALT NT-Pro-B Natriuret Pep 515.8 H Urine Ketones Urine Occult Blood Ur Leukocyte Esterase Urine RBC Urine WBC Urine Bacteria Urine Mucus 05/23/18 05/23/18 05/23/18 05:22 05:22 05:22 RBC 4.03 L Hgb 10.5 L Hct 33.0 L RDW 20.6 H Plt Count 551 H Lymph # (Auto) ESR ALT 55 H NT-Pro-B Natriuret Pep Urine Ketones 5/tr A Urine Occult Blood 0.03 A Ur Leukocyte Esterase 500 A Urine RBC 27 H Urine WBC 29 H Urine Bacteria Few A Urine Mucus Many A Meds: Medications Acetaminophen (Tylenol) 650 mg PO Q6HP PRN PRN Reason: PAIN/FEVER > 101 Albuterol/Ipratropium (Duoneb) 3 ml NEB Q4HRT [facility] Last Admin: 05/25/18 07:42 Dose: 3 ml Albuterol/Ipratropium (Duoneb) 3 ml NEB Q6HRT PRN PRN Reason: Shortness Of Breath Budesonide (Pulmicort) 0.5 mg NEB Q12 [facility] Last Admin: 05/25/18 07:42 Dose: 0.5 mg Calcium/Vitamin D (Calcium W/Vit D3) 1,000 mg PO DAILY [facility] Carbidopa/Levodopa (Sinemet 25/100) 2 tab PO Q4 [facility] Last Admin: 05/25/18 03:41 Dose: 2 tab Enoxaparin Sodium (Lovenox) 40 mg SQ DAILY [facility] Last Admin: 05/24/18 08:11 Dose: 40 mg Furosemide (Lasix) 20 mg PO DAILY [facility] Guaifenesin (Mucinex) 600 mg PO BID [facility] Last Admin: 05/24/18 20:16 Dose: 600 mg Piperacillin Sod/Tazobactam (Sod 3.375 gm/ Dextrose) 50 mls @ 100 mls/hr IV Q6H [facility] Last Admin: 05/25/18 05:59 Dose: 100 mls/hr Iron Carb/Multivit/[place]/Folic Acid (Multivitamin W/Minerals) 1 tab PO DAILY [facility] Loratadine (Claritin) 10 mg PO DAILY [facility] Metoprolol Tartrate (Lopressor) 12.5 mg PO BID [facility] Last Admin: 05/24/18 20:16 Dose: 12.5 mg Omeprazole (Prilosec) 20 mg PO ACB [facility] Last Admin: 05/24/18 20:16 Dose: 20 mg Ondansetron HCl (Zofran) 4 mg IV Q4HP PRN PRN Reason: Nausea And Vomiting Vit A/Vit C/Vit E/Zinc/Copper [ Preservision Areds] Cap 1 dose PO BID [facility] Last Admin: 05/24/18 20:26 Dose: Not Given Pramipexole Dihydrochloride (Mirapex) 0.25 mg PO HS [facility] Last Admin: 05/24/18 20:15 Dose: 0.25 mg Simvastatin (Zocor) 20 mg PO HS [facility] Last Admin: 05/24/18 20:15 Dose: 20 mg Sodium Chloride (Saline Flush) 10 ml IV Q8 [facility] Last Admin: 05/25/18 05:58 Dose: 10 ml Sucralfate (Carafate) 1 gm PO Q6 [facility] Last Admin: 05/25/18 05:58 Dose: Not Given Tamsulosin HCl (Flomax) 0.4 mg PO HS [facility] Last Admin: 05/24/18 20:25 Dose: 0.4 mg Topiramate (Topamax) 25 mg PO [facility] Last Admin: 05/24/18 22:54 Dose: 25 mg Vitamin D (Vitamin D3) 1,000 unit PO DAILY [facility] Medical - PN: A/P - Time Spent With Patient Total time spent is greater than 50% in coordination of care (as documented) at patient's floor/unit and/or counseling patient: Greater than 35 minutes (1) CHF (congestive heart failure) Status: Acute Assessment and plan: His repeated chest x-ray does not show the right lower lobe pneumonia, suggesting more likely CHF etiology. fluid restriction, oral lasix, metoprolol XL, d/c lisinopril. Current Visit: Yes (2) Lethargy Problem details: Altered mental status and decreased level of consciousness Status: Acute Assessment and plan: his main Contributing factors appear to be acute CHF exacerbation, there may be some degrees of residual UTI and possibly pneumonia, from his recent bilateral pneumonia and Escherichia coli septicemia (05/08/18 at [facility]) but no growth on Blood and urine cultures, although the blood & urine samples were obtained while he was already on cefuroxime. Current Visit: Yes (3) Pneumonia Status: Acute Assessment and plan: No growth so far, on blood cultures or urine culture, will DC Zosyn, but continue pulmonary rehabilitation. Repeated chest x-ray did not confirm pneumonia Current Visit: Yes (4) UTI (urinary tract infection) due to urinary indwelling catheter Problem details: indwelling Landon urine has positive leukoesterase, WBC, bacteria Status: Acute Assessment and plan: No growth so far on urine cultures, resume cefuroxime. Current Visit: Yes (5) Celiac disease/sprue Status: Chronic Assessment and plan: Resume gluten-free diet with cardiac contents: Low-fat and low-salt low- cholesterol diet. Current Visit: Yes (6) Parkinson disease, symptomatic Status: Chronic Assessment and plan: Resume home meds: Mirapex and Topamax Current Visit: Yes (7) Hyperlipidemia Problem details: Resume on Zocor, encourage low-fat and low-salt low- cholesterol diet Status: Chronic Current Visit: Yes Medical - PN: Qual - VTE Deep Vein Thrombosis/Pulmonary Embolism Present on Admission: No
--- NOTE | 2018-05-25 07:51 | XRay Report ---
INDICATION: Follow-up pneumonia TECHNIQUE: AP and lateral upright chest x-ray COMPARISON: 05/23/2018 FINDINGS: Right basilar pulmonary parenchymal density demonstrated previously is not identified on present examination. No parenchymal consolidation. 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 Heart size and vascularity are normal. No pulmonary edema. No pulmonary congestion. There is deformity. There is long segment cervicothoracic fusion procedure with kyphotic deformity of the upper thoracic spine and cervicothoracic junction IMPRESSION: No focal pulmonary parenchymal infiltrate Interpreted and Authenticated by: Moises Marks 05/25/18
[2018-05-25] MEDS: OMEPRAZOLE 20 MG CAPSULE PO SCH (08:24)
[2018-05-25] MEDS: CALCIUM W/VIT D3 500 MG TABLET PO SCH (09:28)
[2018-05-25] MEDS: VITAMIN D3 1,000 UNIT TABLET PO SCH (09:28)
[2018-05-25] MEDS: MULTIVIT,THER IRON,CA,FA & MIN 1 TABLET PO SCH (09:29)
[2018-05-25] MEDS: ENOXAPARIN 40 MG/0.4 ML SYRINGE SQ SCH (09:29)
[2018-05-25] MEDS: METOPROLOL TARTRATE 25 MG TABLET PO SCH ×2 (09:29→21:19)
[2018-05-25] MEDS: guaiFENesin 600 MG TAB.SR.12H PO SCH ×2 (09:29→21:19)
[2018-05-25] MEDS: LORATADINE 10 MG TABLET PO SCH (09:29)
[2018-05-25] MEDS: FUROSEMIDE 20 MG TABLET PO SCH (09:29)
[2018-05-25] MEDS: VIT E PO SCH ×2 (15:56→23:34)
[2018-05-25] MEDS: VIT A PO SCH ×2 (15:56→23:34)
[2018-05-25] MEDS: COPPER PO SCH ×2 (15:56→23:34)
[2018-05-25] MEDS: VIT C PO SCH ×2 (15:56→23:34)
[2018-05-25] MEDS: ZINC PO SCH ×2 (15:56→23:34)
[2018-05-25] MEDS: SIMVASTATIN 20 MG TABLET PO SCH (21:18)
[2018-05-25] MEDS: CEFUROXIME 500 MG TABLET PO SCH (21:18)
[2018-05-25] MEDS: TAMSULOSIN 0.4 MG CAPSULE PO SCH (21:19)
[2018-05-25] MEDS: TOPIRAMATE 25 MG TABLET PO SCH (21:19)
[2018-05-25] MEDS: PRAMIPEXOLE 0.25 MG TABLET PO SCH (21:20)
[2018-05-26] MEDS: SUCRALFATE 1 GM TABLET PO SCH ×3 (01:16→12:49)
[2018-05-26] MEDS: CARBIDOPA/LEVODOPA 25/100 TABLET PO SCH ×4 (01:16→12:49)
[2018-05-26] MEDS: IPRATROPIUM/ALBUTEROL 3 ML AMPUL.NEB NEB SCH ×4 (04:03→11:14)
[2018-05-26 05:36] LABS: Basophils # (Auto) 0.1 K/mcL (0.0-0.3); Basophils % (Auto) 1.1 % (0.0-2.0); Eosinophils # (Auto) 0.2 K/mcL (0.0-0.7); Eosinophils % (Auto) 2.5 % (0.0-7.0); Granulocytes % (Auto) 62.2 % (38.0-78.0); Lymphocytes # (Auto) 1.9 K/mcL (1.5-4.8); Lymphocytes % (Auto) 25.7 % (15.5-49.0); Mean Cell Volume 81.8 fL (80.0-100.0); Mean Corpuscular HGB Conc 32.3 g/dL (31.0-36.0); Mean Corpuscular Hemoglobin 26.4 pg (26.0-34.0); Monocytes # (Auto) 0.6 K/mcL (0.1-0.9); Monocytes % (Auto) 8.5 % (1.0-12.0); Platelet Count 472 K/mcL (140-440); RBC 3.81 M/mcL (4.50-5.90); Red Cell Distribution Width 20.8 % (11.5-14.5)
[2018-05-26 06:12] LABS: Blood Urea Nitrogen 22 mg/dl (8-23)
[2018-05-26] MEDS: 0.9 % SODIUM CHLORIDE 10 ML SYRINGE IV SCH ×2 (06:25→12:50)
[2018-05-26] MEDS: VIT A PO SCH (07:34)
[2018-05-26] MEDS: VIT C PO SCH (07:34)
[2018-05-26] MEDS: COPPER PO SCH (07:34)
[2018-05-26] MEDS: ZINC PO SCH (07:34)
[2018-05-26] MEDS: VIT E PO SCH (07:34)
[2018-05-26] MEDS: METOPROLOL TARTRATE 25 MG TABLET PO SCH (08:42)
[2018-05-26] MEDS: MULTIVIT,THER IRON,CA,FA & MIN 1 TABLET PO SCH (08:42)
[2018-05-26] MEDS: guaiFENesin 600 MG TAB.SR.12H PO SCH (08:42)
[2018-05-26] MEDS: FUROSEMIDE 20 MG TABLET PO SCH (08:42)
[2018-05-26] MEDS: OMEPRAZOLE 20 MG CAPSULE PO SCH (08:43)
[2018-05-26] MEDS: LORATADINE 10 MG TABLET PO SCH (08:50)
[2018-05-26] MEDS: VITAMIN D3 1,000 UNIT TABLET PO SCH (08:50)
[2018-05-26] MEDS: CEFUROXIME 500 MG TABLET PO SCH (08:50)
[2018-05-26] MEDS: CALCIUM W/VIT D3 500 MG TABLET PO SCH (08:50)
--- NOTE | 2018-05-26 11:02 | Discharge Summary ---
Medical - DS: Prov Patient information: Note initiated : 05/26/18 at 11:00 am Service Date, if different from initiated Date: [] Patient: Hamlet Schofield 78 y/o M admitted on 05/23/18 for Weakness/Pneumonia. Chief Complaint: [] Date of admission: 05/23/18 09:38 Discharge date: 05/26/18 [facility] Primary care physician: Ronnie Bernal Admitting clinician: Gentry Haas Consults: 05/23/18 07:24 Consult to Physician [CONS] Stat Comment: Consulting Provider: Gentry Haas Reason For Exam: Physician to Consult Attending physician on discharge: Gentry Haas Discharging clinician: Gentry Haas Medical - DS: Meds - Discharge Medications Active and Home Medications: Home Medications Lisinopril [Zestril] 5 mg PO DAILY 05/23/18 [History Confirmed 05/23/18 Last Taken 05/22/18] Magnesium Hydroxide [Milk of Magnesia] 30 ml PO PRN PRN 05/23/18 [History Confirmed 05/23/18 Last Taken Unknown] Omeprazole 20 mg PO QAMAC 05/23/18 [History Confirmed 05/24/18 Last Taken Unknown] Pramipexole [Mirapex] 0.25 mg PO HS 05/23/18 [History Confirmed 05/23/18 Last Taken 05/21/18] Sucralfate [Carafate] 1 gm PO Q6 05/23/18 [History Confirmed 05/23/18 Last Taken 05/22/18] Tamsulosin [Flomax] 0.4 mg PO HS 05/23/18 [History Confirmed 05/23/18 Last Taken 05/21/18] Topiramate [Topamax] 25 mg PO DAILY 05/23/18 [History Confirmed 05/24/18 Last Taken 05/21/18] Vit A/Vit C/Vit E/Zinc/Copper [Preservision Areds Softgel] 1 cap PO BID [History Confirmed 05/23/18 Last Taken 05/22/18] guaiFENesin [Mucinex] 600 mg PO BID 05/23/18 [History Confirmed 05/23/18 Last Taken 05/22/18] Calcium Carbonate/Vitamin D3 [Calcium 600 + Vit D Tablet] 2 tablet PO DAILY 07/04 [History Confirmed 05/24/18 Last Taken Unknown] Carbidopa/Levodopa 25/100 [Sinemet 25/100] 2 tab PO Q4H 05/24/18 [History Confirmed 05/24/18 Last Taken Unknown] Loratadine [Claritin] 10 mg PO DAILY 05/24/18 [History Confirmed 05/24/18 Last Taken Unknown] Multivit,Ther Iron,Ca,FA & Min [Multivitamin W/Minerals] 1 tab PO DAILY [History Confirmed 05/24/18 Last Taken Unknown] Simvastatin [Zocor] 20 mg PO HS 05/24/18 [History Confirmed 05/24/18 Last Taken Unknown] Vitamin D3 1,000 unit PO DAILY 05/24/18 [History Confirmed 05/24/18 Last Taken Unknown] Medical - DS: Hosp Hospital course: Mr. Schofield is a 78 year old M ex-smoker, with hx of prostate cancer, Parkinson's disease, Celiac Sprue, had been recently treated for bilateral pneumonia and Escherichia coli septicemia (05/08/18) at [facility], was found to be [id number]-[id number]-yvowvryw at [facility], where he is to start rehabilitation). His admission chest x-ray yesterday () suggests a new right lower lobe pneumonia (possibly aspiration), although he is still on oral cefuroxime. He also has positive UTI from indwelling Landon with leukoesterase, WBC, bacteria. He is admitted and being treated with IV Zosyn. His reports that he has been fluid overloaded on recent [facility] hospitalization, and his admission lab work was rather unremarkable with normal pro-calcitonin & lactate, no WBC elevation, but elevated BNP 515. His echo report 05/12/[address] [facility] show reduced LV systolic function (EF estimated 30-35 %), severe hypokinesis/akinesis of the septum and anterior septum and apex, there is moderate anterior wall hypokinesis, moderate tricuspid regurgitation, moderate pulmonary hypertension (50-70 mmHg, estimated pulmonary artery pressure 52 mmHg). His prior echo 05/13/16 shows preserved EF of 55-60%. He is started on small dose of Lasix for diuresis. 05/24/18 Sitting on chair, alert and following commands, participated with physical therapy this morning, no problem with swallowing or eating. We will start him on gluten-free diet with cardiac contents & fluid restriction , switch IV meds to oral, resume his Parkinson & other oral home medications but will keep him on 1 more day of IV Lasix, and repeat 2v chest x-ray in the morning. Monitor if he is tolerating metoprolol added, resume lisinopril if BP tolerates. 05/25/18 doing well, answering questions, although slow soft voice, low grade temp this am, await recheck 2V CXR for follow up on RLL infiltrate. His CHF will benefit from beta ana or calcium channel ana, will change lisinopril to metoprolol XL 12.5mg daily. His discharge instruction from [facility]: BMP BNP(?CMP) every 3 days for 2 weeks , following to be discontinued at 05/26-05/27 (self catheter 5 times a day), PT- OT and speech therapy 05/26/18 recheck 2V CXR for follow up: His repeated chest x-ray does not show the right lower lobe pneumonia, suggesting more likely CHF etiology. fluid restriction, oral lasix, metoprolol XL, d/c lisinopril. His lethargic-weakness & decreased level of consciousness was likely to be from acute CHF exacerbation, there may be some degrees of residual UTI and possibly pneumonia, from his recent bilateral pneumonia and Escherichia coli septicemia (05/08/[address] [facility]) but there are no growth on Blood and urine cultures, although the blood & urine samples were obtained while he was already on cefuroxime (since discharge from [facility]). 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 He is accepted back to [facility] ( [facility]) with PT OT speech rehabilitation. He should resume back on cefuroxime (500 MG every 12 hours x10 day course, resume [facility]'s discharge and follow-up instructions). His lisinopril had been switched to metoprolol XL, furosemide and potassium is added. [facility]'s discharge and follow-up instructions to [facility] facility: Rehabilitation , continue pneumonia care, check BMP and BNP P CMP every 3 days for 2 weeks, adjust meds as needed, discontinue Landon and resume 5 times a day self catheter , OT PT and speech rehabilitation. He should be on a strict gluten-free diet, follow-up around 06/02/18, echocardiogram and repeat chest x-ray with follow-up Discharge diagnosis: acute systolic CHF (congestive heart failure), also grade 1 diastolic dysfu Secondary discharge diagnosis: Lethargy, weakness and Altered mental status, resolved and resume back to baseline Moderate pulmonary hypertension (50-70 mmHg), estimated pulmonary arterial pressure 52 mmHg. Pneumonia, residual UTI (urinary tract infection) due to urinary indwelling catheter Chronic: Celiac disease/sprue, symptomatic Parkison's disease, hyperlipidemia - Time Spent with Patient Total time spent providing and/or coordinating discharge services: Greater than 30 minutes Specific discharge activities: Resume prior [facility]'s discharge and follow-up instructions to SNF facility: Rehabilitation, continue pneumonia care, check BMP and BNP P CMP every 3 days for 2 weeks, adjust meds as needed, discontinue Landon and resume 5 times a day self catheter, OT PT and speech rehabilitation. He should be on a strict gluten-free diet, follow-up around 06/02/18, echocardiogram and repeat chest x-ray with follow-up Medical - DS: Exam - Constitutional Vitals: Vital Signs Temp Pulse Pulse Resp BP BP Pulse Ox 05/26/18 08:00 84 15 90 05/26/18 07:59 98.2 F 85 15 128/79 90 05/26/18 04:00 98.8 F 81 32 H 108/64 90 05/26/18 00:00 98.5 F 26 H 101/64 94 05/25/18 20:38 66 20 95 05/25/18 20:00 98.9 F 28 H 119/65 95 05/25/18 19:45 68 20 05/25/18 16:00 98.6 F 80 18 113/76 05/25/18 15:27 66 22 05/25/18 12:00 98.1 F 20 105/76 94 05/25/18 11:38 79 22 Intake and Output 05/25/18 05/26/18 05/26/18 21:59 05:59 13:59 Intake Total 800 / 800 50 / 50 Output Total 550 / 550 450 / 450 Balance 250 / 250 -400 / -400 Intake: Oral 800 / 800 50 / 50 Output: Urine Catheter Amount 550 / 550 450 / 450 Other: Meal Dinner Percent of Meal Consumed 100% Feeding Ability Independent Weight 157 lb 14.4 oz General appearance: no acute distress - Head Head exam: Present: atraumatic, normocephalic - Eye Eye exam: Present: EOMI, PERRL Pupils: Present: normal accommodation - ENT ENT exam: Present: mucous membranes moist - Neck Neck exam: Present: normal inspection. Absent: lymphadenopathy - Respiratory Respiratory exam: Present: normal respiratory exam, CTAB - Cardiovascular Cardiovascular exam: Present: RRR. Absent: gallop, rubs - GI/Abdominal GI/Abdominal exam: Present: normal bowel sounds, soft. Absent: guarding, rebound, tenderness - Extremities Exam Extremities exam: Present: normal capillary refill. Absent: pedal edema, tenderness - Neurological Exam Neurological exam: Present: alert, CN II-XII intact Additional comments: staggering moves of Parkinson features - Skin Skin exam: Present: dry, warm Medical - DS: Data Procedures and tests throughout hospitalization: Chest x-ray, elevated BNP,, repeated two-view chest x-ray Labs on day of discharge: Labs from last 24 hours 05/26/18 05/26/18 03:35 03:35 WBC 7.5 RBC 3.81 L Hgb 10.0 L Hct 31.1 L MCV 81.8 MCH 26.4 MCHC 32.3 RDW 20.8 H Plt Count 472 H MPV 9.1 Gran % 62.2 Lymph % (Auto) 25.7 [place] % (Auto) 8.5 Eos % (Auto) 2.5 Baso % (Auto) 1.1 Gran # 4.7 Lymph # (Auto) 1.9 [place] # (Auto) 0.6 Eos # (Auto) 0.2 Baso # (Auto) 0.1 Sodium 139 Potassium 3.5 Chloride 101 Carbon Dioxide 24 Anion Gap 14.0 BUN 22 Creatinine 1.0 GFR Calculation 73 Glucose 77 Calcium 9.1 Preliminary micro results at discharge 05/23/18 08:26 Blood Culture - Preliminary Blood 05/23/18 08:34 Blood Culture - Preliminary Blood - Impressions 78 year old M ex-smoker, with hx of prostate cancer, Parkinson's disease, Celiac Sprue, had been recently treated for bilateral pneumonia and Escherichia coli septicemia (05/08/18) at [facility], was found to be lethargic-sleepy -unarouse at [facility] ([facility], where he is to start rehabilitation). His admission chest x-ray (05/23/18) suggests a new right lower lobe pneumonia (possibly aspiration), although he is still on oral cefuroxime. He also has positive UTI from indwelling Landon with leukoesterase, WBC, bacteria. He is admitted and being treated with IV Zosyn. His admission lab work was rather unremarkable with normal pro-calcitonin & lactate, no WBC elevation, but elevated BNP 515. His reports that he has been fluid overloaded on recent [facility] hospitalization. He is started on small dose of Lasix for diuresis, and he responses well. He was able to participate with PT the next morning. His lethargic-weakness & decreased level of consciousness was likely to be from acute CHF exacerbation & possible aspiration, there may be some degrees of residual UTI and pneumonia, from his recent bilateral pneumonia and Escherichia coli septicemia (05/08/[address] [facility]). His echo report 05/[address] [facility] show reduced LV systolic function (EF estimated 30-35%), severe hypokinesis/akinesis of the septum and anterior septum and apex, there is moderate anterior wall hypokinesis, moderate tricuspid regurgitation, moderate pulmonary hypertension (50-70 mmHg, estimated pulmonary artery pressure 52 mmHg) . His prior echo 05/13/16 shows preserved EF of 55-60%. Repeated chest x-ray does not show the right lower lobe pneumonia, suggesting more likely CHF with possible aspiration, and iv Zosyn was D/C's 05/25/18. At discharge, there are no growth on Blood and urine cultures, although the blood & urine samples were obtained at ER (while he was already on cefuroxime since discharge from [facility]). 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 He is accepted back to [facility] ([facility]) with PT OT speech rehabilitation. He should resume back on cefuroxime for 2 more days(to finish his 500 MG every 12 hours x10 day course), resume [facility]'s discharge and follow-up instructions to SNF facility: PT/OT/ST Rehabilitation, continue pneumonia care, check BMP, BNP CMP every 3 days for 2 weeks, adjust meds as needed, discontinue Landon and resume 5 times a day self catheter. He should be on a strict gluten-free diet, follow-up around 06/02/18, echocardiogram and repeat chest x-ray with follow-up. Medical - DS: A/P - Patient/Caregiver Discharge Instructions Activity: as per physical therapy Diet: Low Fat, Gluten Free Additional Instructions: Strict gluten-free diet, fluid restriction not to exceed 1.5 L day on Lasix Prescriptions: Cefuroxime [Ceftin] 500 mg PO Q12 3 Days #7 tab Furosemide [Lasix] 20 mg PO DAILY #30 tab Metoprolol Succinate 25 mg PO DAILY #30 tab.er.24h Potassium Chloride [Kdur] 20 meq PO QAMCC #30 tab Other Amb Orders: Basic Metabolic Panel Location: Determined By Patient Comprehensive Metabolic Panel Location: Determined By Patient proBNP Location: Determined By Patient - Problem Maintenance (1) CHF (congestive heart failure) Status: Acute Qualifiers: Heart failure type: systolic Heart failure chronicity: acute on chronic Qualified Code(s): I50.23 - Acute on chronic systolic (congestive) heart failure (2) Lethargy Status: Resolved Comment: Altered mental status and decreased level of consciousness (3) Pneumonia Status: Resolved Qualifiers: Pneumonia type: aspiration pneumonia Aspiration pneumonia type: unspecified Laterality: right Lung location: lower lobe of lung Qualified Code(s): J69.0 - Pneumonitis due to inhalation of food and vomit (4) UTI (urinary tract infection) due to urinary indwelling catheter Status: Resolved Comment: indwelling Landon urine has positive leukoesterase, WBC, bacteria (5) Pulmonary hypertension Status: Chronic (6) Celiac disease/sprue Status: Chronic (7) Parkinson disease, symptomatic Status: Chronic (8) Hyperlipidemia Status: Chronic Comment: Resume on Zocor, encourage low-fat and low-salt low- cholesterol diet - Follow up Plan Follow up with: Ronnie Bernal MD [Primary Care Provider] - (in 1 week, 2 D echocardiogram and repeat Chest X-ray with follow up.) Disposition: [facility] Prognosis: Fair Rehab Potential: Good I certify that the patient requires SNF services: Yes (PT/OT/Speech Therapy) Overall status at discharge: patient is back to baseline Medical - DS: Qual - VTE Deep Vein Thrombosis/Pulmonary Embolism Present on Admission: No
[2018-05-26] MEDS: BUDESONIDE 0.5 MG/2 ML AMPUL.NEB NEB SCH (11:14)
== END 2018-05-26 14:00 | DRG 291 ==
LOC: ED 05:05 → MEDSUR 09:38 → ICU 10:37
PROVIDERS: ADMIT Emergency Medicine; ATTEND Emergency Medicine